=== PATIENT | female | born 1970 | race Caucasian/White ===

== ENCOUNTER → 2017-01-04 | Outpatient (CLI) | payer OTHER | LOC: BRMIMAGING 11:57 | PROVIDERS: ATTEND Physician Assistant Medical | DX: R05 Cough (principal) | CPT/HCPCS: 71020-PO ==

== ENCOUNTER → 2017-02-22 | Outpatient (CLI) | payer OTHER | LOC: BRMIMAGING 14:05 | PROVIDERS: ATTEND Internal Medicine | DX: M79.642 Pain in left hand (principal); M79.641 Pain in right hand; M77.31 Calcaneal spur, right foot; M77.32 Calcaneal spur, left foot; R53.83 Other fatigue | CPT/HCPCS: 73130-PO; 73630-PO ==